=== PATIENT | female | born 2000 | race Two or more races ===

== ENCOUNTER 2024-03-01 11:51 | Inpatient (IN) ==
[2024-03-01 12:50] LABS: Albumin Level 4.6 gm/dl (3.4-5.0); Bilirubin,Total 0.6 mg/dl (0.2-1.0); Calcium 9.8 mg/dl (8.6-10.3); Potassium 3.6 mmol/L (3.5-5.1)
[2024-03-01 12:52] LABS: Basophils # (auto) 0.03 K/uL (0.00-0.20); Basophils % (auto) 0.5 %; Eosinophils # (auto) 0.04 K/uL (0.00-0.50); Eosinophils % (auto) 0.7 %; Hematocrit (blood only) 37.4 % (37.0-47.0); Immature Granulocytes # (auto) 0.02 K/uL (0.01-0.20); Immature Granulocytes % (auto) 0.4 %; Lymphocytes # (auto) 1.67 K/uL (1.20-3.40); Mean Corpuscular Hemoglobin 30.5 pg (25.0-34.0); Mean Corpuscular Hgb Conc 34.8 g/dL (32.0-36.0); Mean Corpuscular Volume 87.8 fL (80.0-100.0); Mean Platelet Volume 11.3 fL (9.4-12.4); Monocytes # (auto) 0.35 K/uL (0.11-0.59); Monocytes % (auto) 6.3 %; Neutrophils # (auto) 3.45 K/uL (1.40-6.50); Neutrophils % (auto) 62.1 %; Platelet Count 251 K/uL (130-400); RDW Coefficient of Variation 11.9 % (11.5-14.5); RDW Standard Deviation 37.9 fL (36.4-46.3); Red Blood Count 4.26 M/uL (4.20-5.40); White Blood Count 5.56 K/ul (4.8-10.8)
[2024-03-01 12:56] LABS: Albumin Globulin Ratio 1.6 (0.9-2); BUN Creatinine Ratio 18.1 (10-20); Creatinine Clr Calc Pharmacy 107.4 ml/min; Est GFR (Non-African American) 100.1 ml/min; Globulin 2.9 gm/dl (2.5-4.0); Total Protein 7.5 gm/dl (6.0-8.3)
[2024-03-01 12:57] LABS: Acetaminophen < 3 ug/ml (10-30); Salicylate < 3.0 mg/dl (3.0-30)
[2024-03-01 13:06] LABS: Appearance Urine Turbid (Clear); Bacteria Urine Automated 3+ (None Seen); Bilirubin Urine Negative (Negative); Blood Urine Negative (Negative); Cast Urine Automated 0-2 /lpf (0-2); Color Urine Dark Yellow; Glucose Urine UA Negative (Negative); Ketones Urine Trace (Negative); Leukocyte Esterase Urine Negative (Negative); Nitrite Urine Negative (Negative); Protein Urine Trace (Negative); RBC Urine Automated 0-2 /hpf (0-2); Specific Gravity Urine 1.031 (1.000-1.030); Urobilinogen Urine Negative (Negative); WBC Urine Automated 0-5 /hpf (0-5)
[2024-03-01 13:28] LABS: Amphetamines+Metham, Urine Neg (Neg); Barbiturates, Urine Neg (Neg); Benzodiazepine, Urine Neg (Neg); Cocaine, Urine Neg (Neg); MDMA (Ecstacy), Urine Neg (Neg); Marijuana, Urine Pos (Neg); Methadone, Urine Neg (Neg); Opiate, Urine Neg (Neg); Phencyclidine, Urine Neg (Neg)
[2024-03-01 15:00] LABS: Thyroid Stimulating Hormone 1.335 uIu/ml (0.300-4.500)
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
[2024-03-01] MEDS ORDERED: ALUMINUM/MAGNESIUM SUSP 30 ML UDC PO PRN (17:14)
[2024-03-01] MEDS ORDERED: MAGNESIUM HYDROXIDE SUSP 30 ML UDC PO PRN (17:14)
[2024-03-01] MEDS ORDERED: BISMUTH SUBSALICYLATE LIQD 236 ML PO PRN (17:14)
[2024-03-01] MEDS ORDERED: ACETAMINOPHEN 325 MG TAB PO PRN (17:14)
[2024-03-01] MEDS ORDERED: SODIUM CHLORIDE 0.65% NA SOLN 45 ML (OCEAN) PRN (17:14)
[2024-03-01] MEDS ORDERED: hydrOXYzine HCl 25 MG TAB PO PRN (17:14)
[2024-03-01] MEDS: hydrOXYzine HCl 25 MG TAB PO PRN (21:29)
--- NOTE | 2024-03-02 09:19 | History & Physical ---
Date of Service March 02, 2024 Impression / Recommendations Sheridan Cool is a 23 year old woman with a history of depression, anxiety and ADHD who was admitted for worsening depression, anxiety and SI with plans and researching means. Diagnostically consistent with major depressive disorder with anxious distress as well as CAROLINE with panic attacks and possible component of PTSD and history of past ADHD diagnosis in adulthood. She is deemed in need of psychiatric hospitalization for diagnostic clarification, safety and stabilization, medication management and development of further coping skills. Discussed medication treatment options in detail. Discussed risks, benefits and alternatives. Patient would like to start and consented to fluoxetine for MDD, CAROLINE with panic attacks and possible PTSD. Reviewed side effects including but not limited to: GI, HEATH, sexual side effects, and counseled on black box warning of potential for emergence of or increased SI and need to let staff know should this occur or should they feel unsafe. Also discussed importance of seeking emergency care following discharge if this side effect occurs in the future. Overall I spent a total of 82 minutes for this admission including review of chart records, review of labwork, direct evaluation of the patient, counseling the patient, ordering medication, risk assessment, discussion with the psychiatric liason RN and documentation in the electronic health record. (1) Depression with suicidal ideation: (2) Major depress dis, severe: (3) Generalized anxiety disorder with panic attacks: (4) ADHD: Plan 03/02/2024: The patient was admitted to the [facility] ([facility] mental [facility] unit) on q15 min checks (behavioral with suicide precautions) for safety. The patient will participate in group, recreational, and milieu therapies and will be offered additional individual and family sessions as clinically appropriate. -Start Fluoxetine 20mg daily Inventory Assets Strengths: supportive relationships, willing to get treatment Needs: safety and stabilization, medication adjustment, additional coping skills, increased outpatient services Suicide Risk Level Suicide Risk Level: High-Moderate (q15 min suicide checks) (severe depression with SI with plan prior to admission but feels safe in the hospital, able to safety contract and agrees to let nursing/staff know should they develop plan, intent or feel unable to remain safe. 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 Chief Complaint "I've been feeling more hopeless". History of Present Illness Silvina reports "I just haven't been feeling well for awhile" and isn't sure there is any one reason but notes recent stressors including academic difficulty, breakup prior to winter break, brother attempted suicide in October, and then her dog a few months ago. She reports symptoms of depression including brain fog with difficulty concentrating, difficulty getting out of bed, poor appetite, low motivation, hopelessness, low energy, difficulty falling and staying asleep and has nightmares. She's been having suicidal thoughts since middle school but usually can ignore them but as her hopefulness has dwindled they have gotten more intense over the last month. She started to think about using a gun or taking pills and had been researching means. She's also been having a lot of anxiety excessive worry, restlessness, fatigue, irritability, muscle tension, insomnia, decreased concentration, and panic attacks (happen about 1-2 times per month and last about 10min - few hours). She also endorses some PTSD symptoms including flashbacks (recent stuff occurs more frequently) and hypervigilance. She is not currently taking any psychiatric medications. Psychiatric ROS notable for no history of magalis, nor psychosis, nor OCD, nor eating disorder, nor self-harm. Past Psychiatric History Current Psychiatric Diagnosis: Adhd, Depression, Anxiety Outpatient Services: none currently, previously saw a therapist virtually in [place] Previous Psych Admissions: none Do You Have Access To A Gun?: No History of Previous Suicide Attempt: No Past Medication Trials: none Past Head Trauma/Neuro History History of Concussion/Seizure: No Allergies Allergy/AdvReac Type Severity Reaction Status Date / Time No Known Allergies Allergy Unverified 03/01/24 12:57 Home Medications Medication Instructions Recorded Confirmed Type No Known Home Medications 03/01/24 03/01/24 History Family History Family History of: Depression (dad and brother), Anxiety, Suicide Attempts (brother attempted in Oct 2023) and Other-List under Comment (ADHD on mother's side) Alcohol History Hx of Alcohol Use Over the Past 12 Months: No AUDIT Total Score: 4 Drinks socially maybe 1-2 times per week at a [employer] and will have 1-3 drinks. Smoking Use Smoking Status: Never smoker Substance History Hx of Prescription Med Misuse Over the Past 12 Months: No Hx of Over the Counter Med Misuse Over the Past 12 Months: No Hx of Inhalent Misuse Over the Past 12 Months: No Hx of Organic Substance Use Over the Past 12 Months: Yes (Marijuana) Hx of Illegal Substances/Street Drug Use Over Past 12 Months: No Problems as a Result of Past Substance Use: None Identified Cannabis use via smoking, likes that it "relaxes me", doesn't like that "can make functioning well difficult" so sometimes will add nicotine to be able to better focus but also be relaxed. Recently over the last month has been using it daily. Personal History Living Arrangements: Apartment Childhood: Grew up in [place]. Parents . Older half-sister and older half-brother. Highest Grade Completed: Some College (Senior in [employer], plan is to graduate this summer) Employment Status: Student Marital Status: Single Number Of Children: n/a Beliefs That Will Affect Care: None Current Legal Problems: No Hx Legal Problems: No Hx Traumatic Life Events: Yes Patient History Medical History ADHD Depression with suicidal ideation Anxiety Social History Smoking Status: Never smoker Preferred Language: Romanian Communication Ability: Effective Crime Investigator Special Agent Required: No Beliefs That Will Affect Care: None Feels Safe at Home: Yes Gender Identity: Female Assistive Devices: Contacts Review of Systems Review of Systems: All systems reviewed & are unremarkable except as noted in HPI & below (feels like she has "brain fog") Physical Exam Psychiatric: Orientation: alert and oriented x 3 Apperance: appropriately dressed and appropriately groomed Eye Contact: good eye contact Motor Behavior: no abnormal motor movements Speech: normal rate/rhythm/volume of speech Affect: + depressed affect and + constricted affect Mood: + depressed mood and + anxious mood Thought Process: goal directed thought process Thought Content: reality based without delusions Suicidal Thoughts: denies suicidal plan (none for here, outside to use gun or take overdose ); + reports suicidal thoughts Homicidal Thoughts: denies homicidal thoughts Hallucinations: no auditory hallucinations and no visual hallucinations Cognition: recent memory grossly intact, remote memory grossly intact, attention grossly intact and language grossly intact Estimated Intelligence: consistent with education level Insight: + fair insight Judgment: + fair judgement Vital Signs (Past 24 Hours): Last Vital Signs Temp 36.5 C 03/02/24 06:21 Pulse 59 L 03/02/24 06:22 Resp 16 03/02/24 06:21 BP 106/63 03/02/24 06:22 Pulse Ox 100 03/02/24 06:21 O2 Del Method Room Air 03/02/24 06:21 Exam Statement: A physical exam was performed in the ED by Sonia for the purposes of medical clearance. I accept that physical as correct and adequate for the purposes of the inpatient physical exam. Results & Data ([facility]) Laboratory Results Laboratory Results - last 24 hr 03/01/24 03/01/24 03/01/24 12:15 12:21 12:30 WBC 5.56 RBC 4.26 Hgb 13.0 Hct 37.4 MCV 87.8 MCH 30.5 MCHC 34.8 RDW Std Deviation 37.9 RDW Coeff of Clement 11.9 Plt Count 251 MPV 11.3 Immature Gran % (Auto) 0.4 Neut % (Auto) 62.1 Lymph % (Auto) 30.0 Patrick % (Auto) 6.3 Eos % (Auto) 0.7 Baso % (Auto) 0.5 Neut # (Auto) 3.45 Lymph # (Auto) 1.67 Patrick # (Auto) 0.35 Eos # (Auto) 0.04 Baso # (Auto) 0.03 Immature Gran # (Auto) 0.02 Sodium 140 Potassium 3.6 Chloride 106 Carbon Dioxide 27 Anion Gap 7 BUN 15 Creatinine 0.83 Est Cr Clr Drug Dosing 107.4 Est GFR ( Amer) 116.0 Est GFR (Non-Af Amer) 100.1 BUN/Creatinine Ratio 18.1 Glucose 86 Calcium 9.8 Total Bilirubin 0.6 AST 15 ALT 18 Alkaline Phosphatase 66 Total Protein 7.5 Albumin 4.6 Globulin 2.9 Albumin/Globulin Ratio 1.6 TSH 1.335 Urine Color Dark Yellow Urine Appearance Turbid A Urine pH 5.0 Ur Specific Amity 1.031 H Urine Protein Trace H Urine Glucose (UA) Negative Urine Ketones Trace H Urine Blood Negative Urine Nitrite Negative Urine Bilirubin Negative Urine Urobilinogen Negative Ur Leukocyte Esterase Negative Urine WBC (Auto) 0-5 Urine RBC (Auto) 0-2 U Hyaline Cast (Auto) 0-2 U Epithel Cells (Auto) 11-20 H Urine Bacteria (Auto) 3+ H POC Ur Test NEG Salicylates < 3.0 L Urine Opiates Screen Neg Ur Methadone, Qual Neg Acetaminophen < 3 L Urine Barbiturates Neg Ur Phencyclidine (PCP) Neg U Amphetamin/Meth Scrn Neg MDMA (Ecstasy) Screen Neg U Benzodiazepines Scrn Neg Ur Cocaine Metabolite Neg U Marijuana (THC) Screen Pos H U Marijuana THC Carboxy Pending Drug Screen Comment Pending Ethyl Alcohol mg/dL < 10.0 SARS-CoV-2, RNA, NAAT 03/01/24 12:49 WBC RBC Hgb Hct MCV MCH MCHC RDW Std Deviation RDW Coeff of Clement Plt Count MPV Immature Gran % (Auto) Neut % (Auto) Lymph % (Auto) Patrick % (Auto) Eos % (Auto) Baso % (Auto) Neut # (Auto) Lymph # (Auto) Patrick # (Auto) Eos # (Auto) Baso # (Auto) Immature Gran # (Auto) Sodium Potassium Chloride Carbon Dioxide Anion Gap BUN Creatinine Est Cr Clr Drug Dosing Est GFR ( Amer) Est GFR (Non-Af Amer) BUN/Creatinine Ratio Glucose Calcium Total Bilirubin AST ALT Alkaline Phosphatase Total Protein Albumin Globulin Albumin/Globulin Ratio TSH Urine Color Urine Appearance Urine pH Ur Specific [place] Urine Protein Urine Glucose (UA) Urine Ketones Urine Blood Urine Nitrite Urine Bilirubin Urine Urobilinogen Ur Leukocyte Esterase Urine WBC (Auto) Urine RBC (Auto) U Hyaline Cast (Auto) U Epithel Cells (Auto) Urine Bacteria (Auto) POC Ur Test Salicylates Urine Opiates Screen Ur Methadone, Qual Acetaminophen Urine Barbiturates Ur Phencyclidine (PCP) U Amphetamin/Meth Scrn MDMA (Ecstasy) Screen U Benzodiazepines Scrn Ur Cocaine Metabolite U Marijuana (THC) Screen U Marijuana THC Carboxy Drug Screen Comment Ethyl Alcohol mg/dL SARS-CoV-2, RNA, NAAT NEGATIVE Current Inpatient Medications Current Inpatient Medications: Current Inpatient Medications Acetaminophen (Acetaminophen 325 Mg Tab) 650 mg PO Q4H PRN PRN Reason: Headache or Minor Fever Stop: 03/31/24 17:13 Al Hydrox/Mg Hydrox/Simethicone (Aluminum/Magnesium Susp 30 Ml Udc) 30 ml PO Q4H PRN PRN Reason: GI Upset Stop: 03/31/24 17:13 Bismuth Subsalicylate (Bismuth Subsalicylate Liqd 236 Ml) 15 ml PO PRN PRN PRN Reason: Loose Stool Stop: 03/31/24 17:13 Hydroxyzine HCl (Hydroxyzine Hcl 25 Mg Tab) 50 mg PO HSZ PRN PRN Reason: Insomnia Stop: 03/31/24 17:13 Last Admin: 03/01/24 21:29 Dose: 50 mg Hydroxyzine HCl (Hydroxyzine Hcl 25 Mg Tab) 25 mg PO Q4H PRN PRN Reason: Anxiety Stop: 03/31/24 17:13 Magnesium Hydroxide (Magnesium Hydroxide Susp 30 Ml Udc) 30 ml PO DAILY PRN PRN Reason: Constipation Stop: 03/31/24 17:13 Sodium Chloride (Sodium Chloride 0.65% Na Soln 45 Ml ([place])) 1 - 2 sprays NA PRN PRN PRN Reason: Nasal Dryness/Congestion Stop: 03/31/24 17:13
[2024-03-02] MEDS: FLUoxetine HCL 20 MG CAP PO SCH (12:40)
[2024-03-02 22:07] LABS: Marijuana Quant, GCMS Urine 302 ng/mL (<5)
--- NOTE | 2024-03-03 09:16 | Psychiatric Progress Note ---
Date of Service March 03, 2024 Impression / Recommendations Sheridan Cool is a 23 year old woman with a history of depression, anxiety and ADHD who was admitted for worsening depression, anxiety and SI with plans and researching means. Diagnostically consistent with major depressive disorder with anxious distress as well as CAROLINE with panic attacks and possible component of PTSD and history of past ADHD diagnosis in adulthood. She is deemed in need of psychiatric hospitalization for diagnostic clarification, safety and stabilization, medication management and development of further coping skills. 03/03/2024: Some improvement in mood today with lessening of SI from interacting with peers and feeling more socially connected. Tolerating initial doses of fluoxetine so far, possibly some sedation so she may desire switch to HS dosing if this persists. Overall, I spent a total of 35 minutes on this case including meeting with the patient, reviewing the chart, nursing report, multidisciplinary team meeting, orders, and documentation. (1) Depression with suicidal ideation: (2) Major depress dis, severe: (3) Generalized anxiety disorder with panic attacks: (4) ADHD: Plan 03/03/2024: Continue current medications and tx plan. 03/02/2024: The patient was admitted to the [facility] ([facility] mental health unit) on q15 min checks (behavioral with suicide precautions) for safety. The patient will participate in group, recreational, and milieu therapies and will be offered additional individual and family sessions as clinically appropriate. -Start Fluoxetine 20mg daily Inventory Assets Strengths: supportive relationships, willing to get treatment Needs: safety and stabilization, medication adjustment, additional coping skills, increased outpatient services Suicide Risk Level Suicide Risk Level: Moderate (q15 min suicide checks) (severe depression with SI with plan prior to admission but mood improving, feels safe in the hospital, able to safety contract and agrees to let nursing/staff know should they develop plan, intent or feel unable to remain safe. 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 Chief Complaint "a little better". Review of Systems Sleep Information Total Hours of Sleep: 6 Meal Information Percent Meal Consumed - Breakfast: 100 Percent Meal Consumed - Lunch: 100 Percent Meal Consumed - Dinner: 100 Subjective Subjective Patient was seen & assessed and interval progress reviewed with treatment team nursing and social work. Attending groups. Doesn't want to burden her parents so hasn't told them she is in the hospital. She reports quite a bit of morning anxiety. Slept well overall. Possibly some fatigue and sense of disconnectedness as side effect from the fluoxetine but this feels less prominent today. Less SI today, she feels this is due to being distracted and socializing with peers on the unit. Physical Exam Psychiatric Orientation: alert and oriented x 3 Apperance: appropriately dressed and appropriately groomed Eye Contact: good eye contact Motor Behavior: no abnormal motor movements Speech: normal rate/rhythm/volume of speech Affect: + depressed affect Mood: + depressed mood and + anxious mood Thought Process: goal directed thought process Thought Content: reality based without delusions Suicidal Thoughts: denies suicidal plan (none for here, outside to use gun or take overdose ); + reports suicidal thoughts (lessening) Homicidal Thoughts: denies homicidal thoughts Hallucinations: no auditory hallucinations and no visual hallucinations Cognition: recent memory grossly intact, remote memory grossly intact, attention grossly intact and language grossly intact Estimated Intelligence: consistent with education level Insight: + fair insight Judgment: + fair judgement Vital Signs (Past 24 Hours) Last Vital Signs Temp 36.1 C L 03/03/24 06:00 Pulse 85 03/03/24 06:41 Resp 16 03/03/24 06:00 BP 109/72 03/03/24 06:41 Pulse Ox 100 03/02/24 06:21 O2 Del Method Room Air 03/02/24 06:21 Results & Data ([facility]) Laboratory Results Laboratory Results - last 24 hr 03/01/24 12:15 U Marijuana THC Carboxy 302 H Drug Screen Comment SEE NOTE Current Inpatient Medications Current Inpatient Medications: Current Inpatient Medications Acetaminophen (Acetaminophen 325 Mg Tab) 650 mg PO Q4H PRN PRN Reason: Headache or Minor Fever Stop: 03/31/24 17:13 Al Hydrox/Mg Hydrox/Simethicone (Aluminum/Magnesium Susp 30 Ml Udc) 30 ml PO Q4H PRN PRN Reason: GI Upset Stop: 03/31/24 17:13 Bismuth Subsalicylate (Bismuth Subsalicylate Liqd 236 Ml) 15 ml PO PRN PRN PRN Reason: Loose Stool Stop: 03/31/24 17:13 Fluoxetine HCl (Fluoxetine Hcl 20 Mg Cap) 20 mg PO QAM SARAH Stop: 04/01/24 11:14 Last Admin: 03/03/24 08:55 Dose: 20 mg Hydroxyzine HCl (Hydroxyzine Hcl 25 Mg Tab) 50 mg PO HSZ PRN PRN Reason: Insomnia Stop: 03/31/24 17:13 Last Admin: 03/01/24 21:29 Dose: 50 mg Hydroxyzine HCl (Hydroxyzine Hcl 25 Mg Tab) 25 mg PO Q4H PRN PRN Reason: Anxiety Stop: 03/31/24 17:13 Magnesium Hydroxide (Magnesium Hydroxide Susp 30 Ml Udc) 30 ml PO DAILY PRN PRN Reason: Constipation Stop: 03/31/24 17:13 Sodium Chloride (Sodium Chloride 0.65% Na Soln 45 Ml ([place])) 1 - 2 sprays NA PRN PRN PRN Reason: Nasal Dryness/Congestion Stop: 03/31/24 17:13 Mental Health & Subst Abuse Tx Therapist Name of Therapist: N/A Managing Jeweler Name of Managing Jeweler: N/A Post Discharge Appointments Primary Care Physician Name Of Family Doctor/PCP: s if needed
--- NOTE | 2024-03-04 14:11 | Psychiatric Progress Note ---
Date of Service March 04, 2024 Impression / Recommendations Sheridan Cool is a 23 year old woman with a history of depression, anxiety and ADHD who was admitted for worsening depression, anxiety and SI with plans and researching means. Diagnostically consistent with major depressive disorder with anxious distress as well as CAROLINE with panic attacks and possible component of PTSD and history of past ADHD diagnosis in adulthood. She is deemed in need of psychiatric hospitalization for diagnostic clarification, safety and stabilization, medication management and development of further coping skills. 03/04/24: Further improvement with some residual symptoms. Tlerates medication w ell for the most part but complained about daytime sedation. Agreed to have the medication moved to night time. Continued inpatient hospitalization is medically necessary for ongoing monitoring and safety. 03/03/2024: Some improvement in mood today with lessening of SI from interacting with peers and feeling more socially connected. Tolerating initial doses of fluoxetine so far, possibly some sedation so she may desire switch to HS dosing if this persists. Overall, I spent a total of 35 minutes on this case including meeting with the patient, reviewing the chart, nursing report, orders, and documentation. (1) Depression with suicidal ideation: (2) Anxiety: (3) ADHD: Plan 03/04/2024: -Continue fluoxetine 20 mg. Change from every morning and 2 nightly. -Continue to monitor mood symptoms. -Not ready for discharge. 03/03/2024: Continue current medications and tx plan. 03/02/2024: The patient was admitted to the [facility] ([facility] mental health unit) on q15 min checks (behavioral with suicide precautions) for safety. The patient will participate in group, recreational, and milieu therapies and will be offered additional individual and family sessions as clinically appropriate. -Start Fluoxetine 20mg daily Inventory Assets Strengths: supportive relationships, willing to get treatment Needs: safety and stabilization, medication adjustment, additional coping skills, increased outpatient services Suicide Risk Level Suicide Risk Level: Moderate (q15 min suicide checks) (severe depression with SI with plan prior to admission but mood improving, feels safe in the hospital, able to safety contract and agrees to let nursing/staff know should they develop plan, intent or feel unable to remain safe. 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 Chief Complaint "Prozac is good and makes me feel more relaxed. I typically wake up anxious." Review of Systems Sleep Information Total Hours of Sleep: 5.5 Meal Information Percent Meal Consumed - Breakfast: 100 Percent Meal Consumed - Lunch: 100 Percent Meal Consumed - Dinner: 100 Subjective Subjective Patient was seen & assessed and interval progress reviewed with nursing and social work. Silvina reported that she started taking Prozac for the first time during this admission and thus far the medication has been helping her feel less anxious. She indicated that her anxiety symptoms were at a severity of 9 out of 10 "almost 10" prior to the hospitalization and are currently at 3 out of 10 (on a scale from 0-10, 10 being the worst). Efren told me that her appetite is normal, she had a good night of sleep. She also shared that the sad thoughts that she was having prior to admission appeared to be dissipating and denied any suicidal ideation at this time. Physical Exam Psychiatric Orientation: alert and oriented x 3 Apperance: appropriately dressed Eye Contact: good eye contact Motor Behavior: steady gait and station and no abnormal motor movements Speech: normal rate/rhythm/volume of speech Affect: + depressed affect Mood: + anxious mood Thought Process: goal directed thought process Thought Content: no preoccupation, not paranoid and no delusions Suicidal Thoughts: denies suicidal thoughts Homicidal Thoughts: denies homicidal thoughts Hallucinations: no auditory hallucinations Cognition: remote memory grossly intact and attention grossly intact Estimated Intelligence: consistent with education level Insight: good insight Judgment: good judgement and + fair judgement Vital Signs (Past 24 Hours) Last Vital Signs Temp 36.8 C 03/04/24 06:37 Pulse 66 03/04/24 06:38 Resp 16 03/04/24 06:37 BP 113/76 03/04/24 06:38 Pulse Ox 100 03/02/24 06:21 O2 Del Method Room Air 03/02/24 06:21 Results & Data ([facility]) Current Inpatient Medications Current Inpatient Medications: Current Inpatient Medications Acetaminophen (Acetaminophen 325 Mg Tab) 650 mg PO Q4H PRN PRN Reason: Headache or Minor Fever Stop: 03/31/24 17:13 Al Hydrox/Mg Hydrox/Simethicone (Aluminum/Magnesium Susp 30 Ml Udc) 30 ml PO Q4H PRN PRN Reason: GI Upset Stop: 03/31/24 17:13 Bismuth Subsalicylate (Bismuth Subsalicylate Liqd 236 Ml) 15 ml PO PRN PRN PRN Reason: Loose Stool Stop: 03/31/24 17:13 Fluoxetine HCl (Fluoxetine Hcl 20 Mg Cap) 20 mg PO QAM SARAH Stop: 04/01/24 11:14 Last Admin: 03/04/24 10:11 Dose: 20 mg Hydroxyzine HCl (Hydroxyzine Hcl 25 Mg Tab) 50 mg PO HSZ PRN PRN Reason: Insomnia Stop: 03/31/24 17:13 Last Admin: 03/03/24 23:19 Dose: 50 mg Hydroxyzine HCl (Hydroxyzine Hcl 25 Mg Tab) 25 mg PO Q4H PRN PRN Reason: Anxiety Stop: 03/31/24 17:13 Magnesium Hydroxide (Magnesium Hydroxide Susp 30 Ml Udc) 30 ml PO DAILY PRN PRN Reason: Constipation Stop: 03/31/24 17:13 Sodium Chloride (Sodium Chloride 0.65% Na Soln 45 Ml ([place])) 1 - 2 sprays NA PRN PRN PRN Reason: Nasal Dryness/Congestion Stop: 03/31/24 17:13 Mental Health & Subst Abuse Tx Therapist Name of Therapist: N/A Bio Medical Technician Name of Bio Medical Technician: N/A Post Discharge Appointments Primary Care Physician Name Of Family Doctor/PCP: s if needed
--- NOTE | 2024-03-05 15:46 | Psychiatric Progress Note ---
Date of Service March 05, 2024 Impression / Recommendations Impression Silvina is a 23 year old woman with a history of depression, anxiety and ADHD who was admitted for worsening depression, anxiety and SI with plans and researching means. Diagnostically consistent with major depressive disorder with anxious distress as well as CAROLINE with panic attacks and possible component of PTSD and history of past ADHD diagnosis in adulthood. She is deemed in need of psychiatric hospitalization for diagnostic clarification, safety and stabilization, medication management and development of further coping skills. 03/05/24: Labile mood but continues to show improvement. Tolerating stressors in a better way. 03/04/24: Further improvement with some residual symptoms. Tlerates medication well for the most part but complained about daytime sedation. Agreed to have the medication moved to night time. Continued inpatient hospitalization is medically necessary for ongoing monitoring and safety. 03/03/2024: Some improvement in mood today with lessening of SI from interacting with peers and feeling more socially connected. Tolerating initial doses of fluoxetine so far, possibly some sedation so she may desire switch to HS dosing if this persists. Overall, I spent a total of 35 minutes on this case including meeting with the patient, reviewing the chart, nursing report, orders, and documentation. (1) Depression with suicidal ideation: (2) Anxiety: (3) ADHD: Plan 03/05/2024: -Continue fluoxetine 20 mg qhs -Continue to monitor mood symptoms. -Approaching baseline. 03/04/2024: -Continue fluoxetine 20 mg. Change from every morning to bedtime. -Continue to monitor mood symptoms. -Not ready for discharge. 03/03/2024: Continue current medications and tx plan. 03/02/2024: The patient was admitted to the [facility] ([facility] mental health unit) on q15 min checks (behavioral with suicide precautions) for safety. The patient will participate in group, recreational, and milieu therapies and will be offered additional individual and family sessions as clinically appropriate. -Start Fluoxetine 20mg daily Inventory Assets Strengths: supportive relationships, willing to get treatment Needs: safety and stabilization, medication adjustment, additional coping skills, increased outpatient services Suicide Risk Level Suicide Risk Level: Moderate (q15 min suicide checks) (severe depression with SI with plan prior to admission but mood improving, feels safe in the hospital, able to safety contract and agrees to let nursing/staff know should they develop plan, intent or feel unable to remain safe. 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 Chief Complaint "My support is my friend. My mom's lack of boundaries upsets me". Review of Systems Notes Constitutional: Denies fatigue no daytime sedation today HEENT: Denies dry mouth Respiratory: Denies shortness of breath Integumentary: Denies rash. Sleep Information Total Hours of Sleep: 6.5 Meal Information Percent Meal Consumed - Breakfast: 50 Percent Meal Consumed - Lunch: 100 Percent Meal Consumed - Dinner: 100 Subjective Subjective Patient was seen & assessed and interval progress reviewed with nursing. Clinton was observed interacting with peers, working on puzzles, and attending groups, during the early parts of the day. Afternoon, she was on the phone with a friend and with her mother. Despite describing improvement of her mood, Silvina was tearful in the afternoon after the phone call with her mother. She complained that her mother had shared with her ex-boyfriend information about her admission to the hospital. Silvina felt that that was a transgression of boundaries and became upset and tearful. Silvina was able to appropriately express her concerns and frustrations. She denied suicidal ideation or urges to harm herself. Silvina was able to regain composure and spoke about her plans. Oscar informed me that she is tolerating the medication well and wishes to continue treatment after discharge. She is interested in receiving information regarding caps and assistance to set up her follow-up appointments with mental health providers. The meeting with Silvina's mom is scheduled for tomorrow morning. Silvina had signed a 72-hour notice and decided to rescind that today to allow more time for stabilization prior to discharge. Fluoxetine was moved to nighttime therefore she did not receive the morning dose today and is expecting to receive the medication tonight. She denied daytime sedation. Physical Exam Psychiatric Orientation: alert and oriented x 3 Apperance: appropriately dressed and appropriately groomed Eye Contact: good eye contact Motor Behavior: steady gait and station and no abnormal motor movements Speech: normal rate/rhythm/volume of speech Affect: + labile affect Mood: + depressed mood and + anxious mood Thought Process: goal directed thought process Thought Content: reality based without delusions; no preoccupation, not paranoid and no delusions Suicidal Thoughts: denies suicidal thoughts and denies suicidal plan (none for here, outside to use gun or take overdose ) Homicidal Thoughts: denies homicidal thoughts Hallucinations: no auditory hallucinations and no visual hallucinations Cognition: recent memory grossly intact, remote memory grossly intact, attention grossly intact and language grossly intact Estimated Intelligence: consistent with education level Insight: good insight and + fair insight Judgment: good judgement and + fair judgement Vital Signs (Past 24 Hours) Last Vital Signs Temp 36.5 C 03/05/24 06:27 Pulse 71 03/05/24 06:28 Resp 16 03/05/24 06:27 BP 114/78 03/05/24 06:28 Pulse Ox 100 03/02/24 06:21 O2 Del Method Room Air 03/02/24 06:21 Results & Data ([facility]) Current Inpatient Medications Current Inpatient Medications: Current Inpatient Medications Acetaminophen (Acetaminophen 325 Mg Tab) 650 mg PO Q4H PRN PRN Reason: Headache or Minor Fever Stop: 03/31/24 17:13 Al Hydrox/Mg Hydrox/Simethicone (Aluminum/Magnesium Susp 30 Ml Udc) 30 ml PO Q4H PRN PRN Reason: GI Upset Stop: 03/31/24 17:13 Bismuth Subsalicylate (Bismuth Subsalicylate Liqd 236 Ml) 15 ml PO PRN PRN PRN Reason: Loose Stool Stop: 03/31/24 17:13 Fluoxetine HCl (Fluoxetine Hcl 20 Mg Cap) 20 mg PO HS SARAH Stop: 04/04/24 21:59 Hydroxyzine HCl (Hydroxyzine Hcl 25 Mg Tab) 50 mg PO HSZ PRN PRN Reason: Insomnia Stop: 03/31/24 17:13 Last Admin: 03/04/24 22:05 Dose: 50 mg Hydroxyzine HCl (Hydroxyzine Hcl 25 Mg Tab) 25 mg PO Q4H PRN PRN Reason: Anxiety Stop: 03/31/24 17:13 Magnesium Hydroxide (Magnesium Hydroxide Susp 30 Ml Udc) 30 ml PO DAILY PRN PRN Reason: Constipation Stop: 03/31/24 17:13 Sodium Chloride (Sodium Chloride 0.65% Na Soln 45 Ml ([place])) 1 - 2 sprays NA PRN PRN PRN Reason: Nasal Dryness/Congestion Stop: 03/31/24 17:13 Mental Health & Subst Abuse Tx Therapist Name of Therapist: N/A Underground Mine Superintendent Name of Underground Mine Superintendent: N/A Post Discharge Appointments Primary Care Physician Name Of Family Doctor/PCP: s if needed
[2024-03-05] MEDS: FLUoxetine HCL 20 MG CAP PO SCH (21:00)
--- NOTE | 2024-03-06 13:22 | Psychiatric Progress Note ---
Date of Service March 06, 2024 Impression / Recommendations Impression Silvina is a 23 year old woman with a history of depression, anxiety and ADHD who was admitted for worsening depression, anxiety and SI with plans and researching means. Diagnostically consistent with major depressive disorder with anxious distress as well as CAROLINE with panic attacks and possible component of PTSD and history of past ADHD diagnosis in adulthood. She is deemed in need of psychiatric hospitalization for diagnostic clarification, safety and stabilization, medication management and development of further coping skills. 03/06/24: Approaching baseline. 03/05/24: Labile mood but continues to show improvement. Tolerating stressors in a better way. 03/04/24: Further improvement with some residual symptoms. Tolerates medication well for the most part but complained about daytime sedation. Agreed to have the medication moved to night time. Continued inpatient hospitalization is medically necessary for ongoing monitoring and safety. 03/03/2024: Some improvement in mood today with lessening of SI from interacting with peers and feeling more socially connected. Tolerating initial doses of fluoxetine so far, possibly some sedation so she may desire switch to HS dosing if this persists. Overall, I spent a total of 25 minutes on this case including meeting with the patient, reviewing the chart, nursing report, orders, and documentation. (1) Depression with suicidal ideation: (2) Anxiety: (3) ADHD: Plan 03/06/2024: -Continue fluoxetine 20 mg qhs -Continue to monitor mood symptoms. -Approaching baseline, will prepare for discharge 03/05/2024: -Continue fluoxetine 20 mg qhs -Continue to monitor mood symptoms. -Approaching baseline. 03/04/2024: -Continue fluoxetine 20 mg. Change from every morning to bedtime. -Continue to monitor mood symptoms. -Not ready for discharge. 03/03/2024: Continue current medications and tx plan. 03/02/2024: The patient was admitted to the [facility] ([facility] mental health unit) on q15 min checks (behavioral with suicide precautions) for safety. The patient will participate in group, recreational, and milieu therapies and will be offered additional individual and family sessions as clinically appropriate. -Start Fluoxetine 20mg daily Inventory Assets Strengths: supportive relationships, willing to get treatment Needs: safety and stabilization, medication adjustment, additional coping skills, increased outpatient services Suicide Risk Level Suicide Risk Level: Moderate (q15 min suicide checks) (severe depression with SI with plan prior to admission but mood improving, feels safe in the hospital, able to safety contract and agrees to let nursing/staff know should they develop plan, intent or feel unable to remain safe. 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 Chief Complaint "I feel ok". Review of Systems Sleep Information Total Hours of Sleep: 6.5 Meal Information Percent Meal Consumed - Breakfast: 100 Percent Meal Consumed - Lunch: 100 Percent Meal Consumed - Dinner: 100 Subjective Subjective Patient was seen & assessed and interval progress reviewed with treatment team, nursing and social work. Had family meeting today. She was able to use appropriate language to express her frustrations. Silvina indicated that she frequently experiences ruminations, the thoughts "spiral" and she feels "zoning out" at which point she has to "bring to myself back, i get in my own head." Silvina stated that she has been feeling less preoccupied and more relaxed with the medication. Denied problems sleeping. Her night schedule good. NO daytime sedation since the medication was moved to . sleep problems Off ADHD medication Physical Exam Psychiatric Orientation: alert and oriented x 3 Apperance: appropriately dressed and appropriately groomed Eye Contact: good eye contact Motor Behavior: steady gait and station and no abnormal motor movements Speech: normal rate/rhythm/volume of speech Affect: euthymic affect Mood: no depressed mood and no anxious mood Thought Process: goal directed thought process Thought Content: reality based without delusions; no preoccupation, not paranoid and no delusions Suicidal Thoughts: denies suicidal thoughts Homicidal Thoughts: denies homicidal thoughts Hallucinations: no auditory hallucinations and no visual hallucinations Cognition: recent memory grossly intact, remote memory grossly intact, attention grossly intact and language grossly intact Estimated Intelligence: consistent with education level Insight: good insight Judgment: good judgement Vital Signs (Past 24 Hours) Last Vital Signs Temp 36.8 C 03/06/24 06:27 Pulse 78 03/06/24 06:27 Resp 16 03/06/24 06:27 BP 108/71 03/06/24 06:27 Pulse Ox 100 03/02/24 06:21 O2 Del Method Room Air 03/02/24 06:21 Results & Data ([facility]) Current Inpatient Medications Current Inpatient Medications: Current Inpatient Medications Acetaminophen (Acetaminophen 325 Mg Tab) 650 mg PO Q4H PRN PRN Reason: Headache or Minor Fever Stop: 03/31/24 17:13 Al Hydrox/Mg Hydrox/Simethicone (Aluminum/Magnesium Susp 30 Ml Udc) 30 ml PO Q4H PRN PRN Reason: GI Upset Stop: 03/31/24 17:13 Bismuth Subsalicylate (Bismuth Subsalicylate Liqd 236 Ml) 15 ml PO PRN PRN PRN Reason: Loose Stool Stop: 03/31/24 17:13 Fluoxetine HCl (Fluoxetine Hcl 20 Mg Cap) 20 mg PO HS SARAH Stop: 04/04/24 21:59 Last Admin: 03/05/24 21:00 Dose: 20 mg Hydroxyzine HCl (Hydroxyzine Hcl 25 Mg Tab) 50 mg PO HSZ PRN PRN Reason: Insomnia Stop: 03/31/24 17:13 Last Admin: 03/04/24 22:05 Dose: 50 mg Hydroxyzine HCl (Hydroxyzine Hcl 25 Mg Tab) 25 mg PO Q4H PRN PRN Reason: Anxiety Stop: 03/31/24 17:13 Magnesium Hydroxide (Magnesium Hydroxide Susp 30 Ml Udc) 30 ml PO DAILY PRN PRN Reason: Constipation Stop: 03/31/24 17:13 Sodium Chloride (Sodium Chloride 0.65% Na Soln 45 Ml ([place])) 1 - 2 sprays NA P RN PRN PRN Reason: Nasal Dryness/Congestion Stop: 03/31/24 17:13 Mental Health & Subst Abuse Tx Therapist Name of Therapist: N/A Sound Editor Name of Sound Editor: [employer] [facility] Phone Number for Sound Editor: [phone] Date of Appointment with Sound Editor: 03/08/24 Time of Appointment with Sound Editor: 1:15pm Case Management Appointment Comment: Zoom link will be sent to your [employer] email Post Discharge Appointments Primary Care Physician Name Of Family Doctor/PCP: kim if needed
[2024-03-07] MEDS: MAGNESIUM OXIDE 400 MG TAB PO SCH (08:58)
--- NOTE | 2024-03-07 14:27 | Discharge Summary ---
Date of Service March 07, 2024 History of Present Illness Silvina reports "I just haven't been feeling well for awhile" and isn't sure there is any one reason but notes recent stressors including academic difficulty, breakup prior to winter break, brother attempted suicide in October, and then her dog a few months ago. She reports symptoms of depression including brain fog with difficulty concentrating, difficulty getting out of bed, poor appetite, low motivation, hopelessness, low energy, difficulty falling and staying asleep and has nightmares. She's been having suicidal thoughts since middle school but usually can ignore them but as her hopefulness has dwindled they have gotten more intense over the last month. She started to think about using a gun or taking pills and had been researching means. She's also been having a lot of anxiety excessive worry, restlessness, fatigue, irritability, muscle tension, insomnia, decreased concentration, and panic attacks (happen about 1-2 times per month and last about 10min - few hours). She also endorses some PTSD symptoms including flashbacks (recent stuff occurs more frequently) and hypervigilance. She is not currently taking any psychiatric medications. Psychiatric ROS notable for no history of magalis, nor psychosis, nor OCD, nor eating disorder, nor self-harm. Physical Exam Psychiatric Orientation: alert and oriented x 3 Apperance: appropriately dressed and appropriately groomed Eye Contact: good eye contact Motor Behavior: steady gait and station and no abnormal motor movements Speech: normal rate/rhythm/volume of speech Affect: euthymic affect Mood: no depressed mood and no anxious mood Thought Process: goal directed thought process Thought Content: reality based without delusions; no preoccupation, not paranoid and no delusions Suicidal Thoughts: denies suicidal thoughts Homicidal Thoughts: denies homicidal thoughts Hallucinations: no auditory hallucinations and no visual hallucinations Insight: good insight Judgment: good judgement Vital Signs (Past 24 Hours) Last Vital Signs Temp 36.7 C 03/07/24 06:29 Pulse 69 03/07/24 06:30 Resp 16 03/07/24 06:29 BP 117/81 03/07/24 06:30 Pulse Ox 100 03/02/24 06:21 O2 Del Method Room Air 03/02/24 06:21 Principal Diagnosis MDD recurrent moderate Psychiatric Data See daily stay summary. In short, safety was maintained and the patient was cooperative with care. Medication changes included [] and they tolerated this well. A family session was [held] and safety plan was completed prior to discharge. Day of Discharge Assessment Today the patient voices readiness for discharge. They note improvement in mood and deny thoughts to harm self or others. Thoughts remain organized and they are improved from admission. There is no evidence of psychosis. They agree to take mediations as prescribed and keep follow-up appointments. They are stable for discharge to outpatient level of care. Transition of Care Transition Of Care Record: was reviewed with the patient Advance Directives Advance Directives Information Provided: Yes Advance Directives: No Mental Health Advance Directive: No Advance Directives on File: No Living Will: No Power of Pressure Sealer And Tester: No Advance Directives Reason:: Declines as Mental Health Visit. Suicide Risk Level Suicide Risk Level Comments: Today the patient voices readiness for discharge. They note improvement in mood and deny thoughts to harm self or others. Thoughts remain organized and they are improved from admission. There is no evidence of psychosis. They agree to take mediations as prescribed and keep follow-up appointments. They are stable for discharge to outpatient level of care. Imminent risk is low. 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 Relationships: Yes Supportive Family: Yes Good Rapport with Provider: Yes Discharge Data Lab Results 03/01/24 03/01/24 03/01/24 12:15 12:21 12:30 WBC 5.56 RBC 4.26 Hgb 13.0 Hct 37.4 MCV 87.8 MCH 30.5 MCHC 34.8 RDW Std Deviation 37.9 RDW Coeff of Clement 11.9 Plt Count 251 MPV 11.3 Immature Gran % (Auto) 0.4 Neut % (Auto) 62.1 Lymph % (Auto) 30.0 Donley % (Auto) 6.3 Eos % (Auto) 0.7 Baso % (Auto) 0.5 Neut # (Auto) 3.45 Lymph # (Auto) 1.67 Donley # (Auto) 0.35 Eos # (Auto) 0.04 Baso # (Auto) 0.03 Immature Gran # (Auto) 0.02 Sodium 140 Potassium 3.6 Chloride 106 Carbon Dioxide 27 Anion Gap 7 BUN 15 Creatinine 0.83 Est Cr Clr Drug Dosing 107.4 Est GFR ( Amer) 116.0 Est GFR (Non-Af Amer) 100.1 BUN/Creatinine Ratio 18.1 Glucose 86 Calcium 9.8 Total Bilirubin 0.6 AST 15 ALT 18 Alkaline Phosphatase 66 Total Protein 7.5 Albumin 4.6 Globulin 2.9 Albumin/Globulin Ratio 1.6 TSH 1.335 Urine Color Dark Yellow Urine Appearance Turbid A Urine pH 5.0 Ur Specific [place] 1.031 H Urine Protein Trace H Urine Glucose (UA) Negative Urine Ketones Trace H Urine Blood Negative Urine Nitrite Negative Urine Bilirubin Negative Urine Urobilinogen Negative Ur Leukocyte Esterase Negative Urine WBC (Auto) 0-5 Urine RBC (Auto) 0-2 U Hyaline Cast (Auto) 0-2 U Epithel Cells (Auto) 11-20 H Urine Bacteria (Auto) 3+ H POC Ur Test NEG Salicylates < 3.0 L Urine Opiates Screen Neg Ur Methadone, Qual Neg Acetaminophen < 3 L Urine Barbiturates Neg Ur Phencyclidine (PCP) Neg U Amphetamin/Meth Scrn Neg MDMA (Ecstasy) Screen Neg U Benzodiazepines Scrn Neg Ur Cocaine Metabolite Neg U Marijuana (THC) Screen Pos H U Marijuana THC Carboxy 302 H Drug Screen Comment SEE NOTE Ethyl Alcohol mg/dL < 10.0 SARS-CoV-2, RNA, NAAT 03/01/24 12:49 WBC RBC Hgb Hct MCV MCH MCHC RDW Std Deviation RDW Coeff of Clement Plt Count MPV Immature Gran % (Auto) Neut % (Auto) Lymph % (Auto) Donley % (Auto) Eos % (Auto) Baso % (Auto) Neut # (Auto) Lymph # (Auto) Donley # (Auto) Eos # (Auto) Baso # (Auto) Immature Gran # (Auto) Sodium Potassium Chloride Carbon Dioxide Anion Gap BUN Creatinine Est Cr Clr Drug Dosing Est GFR ( Amer) Est GFR (Non-Af Amer) BUN/Creatinine Ratio Glucose Calcium Total Bilirubin AST ALT Alkaline Phosphatase Total Protein Albumin Globulin Albumin/Globulin Ratio TSH Urine Color Urine Appearance Urine pH Ur Specific [place] Urine Protein Urine Glucose (UA) Urine Ketones Urine Blood Urine Nitrite Urine Bilirubin Urine Urobilinogen Ur Leukocyte Esterase Urine WBC (Auto) Urine RBC (Auto) U Hyaline Cast (Auto) U Epithel Cells (Auto) Urine Bacteria (Auto) POC Ur Test Salicylates Urine Opiates Screen Ur Methadone, Qual Acetaminophen Urine Barbiturates Ur Phencyclidine (PCP) U Amphetamin/Meth Scrn MDMA (Ecstasy) Screen U Benzodiazepines Scrn Ur Cocaine Metabolite U Marijuana (THC) Screen U Marijuana THC Carboxy Drug Screen Comment Ethyl Alcohol mg/dL SARS-CoV-2, RNA, NAAT NEGATIVE Mental Health & Subst Abuse Tx Psychiatrist Name of Psychiatrist: Robin Psychiatrist's Psychiatric Appointment Comment: telehealth program Therapist Name of Therapist: [facility] Therap[facility]'s Therapy Appointment Comment: telehealth program Hebrew Teacher Name of Hebrew Teacher: [employer] [facility] [employer] [facility] Phone Number for Hebrew Teacher: [phone] Date of Appointment with Hebrew Teacher: 03/08/24 Time of Appointment with Hebrew Teacher: 1:15pm Case Management Appointment Comment: Zoom link will be sent to your [employer] email Post Discharge Appointments Primary Care Physician Name Of Family Doctor/PCP: [facility] Primary Care Time of Appointment with PCP: Please follow up as needed Provider Appointment Comment: [facility] Contact Information Discharge Discharge Address: [address] [place] [address] Discharge Plan Discharge Items Patient Disposition: Home - Self-Care Reason For Visit: SUICIDAL IDEATION Discharge Diagnosis: Major depressive disorder Activity: Resume your previous activity Non-emergency contact: Primary Care Provider, Psychiatrist and Therapist Call non-emergency contact if: you have any medication questions and your symptoms worsen Follow-up/Referrals: [facility] [Primary Care Provider] - Diet: Regular Addtl Attending Provider Instructions: SPECIAL CARE INSTRUCTIONS: 1. Follow through with your scheduled aftercare appointments. If unable to keep an appointment, please call to reschedule. 2. Take your medication only as prescribed. Medication should not be changed or stopped without the approval of your doctor. In the event of worsening symptoms or concerns about side effects, contact your doctor immediately. 3. Utilize new healthy coping skills, anger management skills, and stress management skills learned during your hospitalization. Journal feelings and process them with a support person. Identify stressors or situations that may result in relapse, deterioration or inappropriate behaviors and develop a plan to deal with those issues. 4. If your coping skills are ineffective and you are in crisis, contact your outpatient providers for direction. If unable to reach your providers, please call the [facility] CRISIS LINE AT , go to the [facility] walk-in center at [address], [address], [place], or go to the closest Emergency Room. 5. Avoid alcohol and un-prescribed drugs. 6. You have been provided with the Mental Health Advance Directives Pamphlet for your review. 7. Your condition is stable for discharge to outpatient level of care, but recovery is an ongoing process. Ifthoughts to harm yourself or others return, follow the safety plan developed during your stay. Planning for a safe return home includes securing weapons. Our treatment team recommends weaponsbe removed from the home until your outpatient provider reassesses your progress. In rare cases where the items themselvescannot be removed, guns and ammunitionshould be secured separatelyand keys stored by a reliable personoutside of the home. If you were admitted on an involuntary commitment, the police or other legal authorities may be involved in this process. AFTERCARE APPOINTMENTS: * Please call your insurance company prior to your scheduled appointment to confirm your aftercare providers are covered. Take your insurance information to your appointments. WHO TO CALL AND WHEN: Medical Emergencies: For questions or emergencies related to your hospital stay, please contact the [facility] at [phone]. A core baker is on-call 07/06 for the Behavioral Health Unit for emergencies At any time you feel your situation is an emergency, you may also call 911 immediately or the National Suicide lifeline 988. Pending Studies at Discharge: No Stand-Alone Forms: My [facility] AYLIEN, Smoking Cessation Medications and DC Order Prescriptions: New fluoxetine 20 mg Capsule 20 mg PO HS 30 Days Qty: 30 0RF Discharge Orders: Discharge Order (Routine); Ordered 03/07/24 Ordered By: Chen Jack Admission Data Admit Date/Time: 03/01/24 15:55 Attending Provider: Shanta Green Admit Provider: Shanta Green Primary Care Provider: [facility] Other Interventions: Discharge Summary Assessment (RN) Last Done: 03/07/24 14:50 Coding Level of Care Code 50866 D/C day mgmt > 30 min
== END 2024-03-07 16:05 | disposition home or self-care (01) | DRG 885 ==
LOC: ED 11:51 → 3S 15:55